=== PATIENT | female | born 1995 | race Caucasian/White ===

== ENCOUNTER 2018-10-08 09:38 | Emergency (ER) | payer MEDICAID ==
[~2018-10-08] VITALS: Ht 157.5 cm; Wt 68.9 kg
[2018-10-08 09:48] VITALS: BP 99/53
[2018-10-08 12:12] LABS: Urine Bacteria MOD /hpf (None Seen); Urine Blood Negative /uL (Negative); Urine Mucus FEW (None Seen); Urine Specific Gravity 1.007 (1.001-1.035); Urine WBC 54 /hpf (0 - 5)
[2018-10-08] MEDS ORDERED: KETOROLAC TROMETH 60MG/2ML VIAL IM ONE (12:15)
== END 2018-10-08 13:05 | disposition home or self-care (01) ==
LOC: ER 09:38
DX: N39.0 Urinary tract infection, site not specified (principal); J45.909 Unspecified asthma, uncomplicated; Z88.2 Allergy status to sulfonamides; Z90.89 Acquired absence of other organs
CPT/HCPCS: 72100; 81001; 81025; 96372; 99284; J1885; 81002

== ENCOUNTER 2019-04-13 15:04 | Emergency (ER) | payer MEDICAID ==
[~2019-04-13] VITALS: Ht 157.5 cm; Wt 65.8 kg
[2019-04-13 16:20] VITALS: BP 111/64
[2019-04-13 16:46] LABS: Eosinophils # (auto) 0.1 uL
[2019-04-13 16:50] LABS: Basophils # (auto) 0 uL; Basophils % (auto) 0.8 % (0.0-2.0); Hematocrit 44.1 % (36.0-46.0); Hemoglobin 14.6 g/dL (12.2-16.2); Lymphocytes # (auto) 1.4 uL; Lymphocytes % (auto) 23.7 % (10.0-50.0); Mean Corpuscular Hemoglobin 29.1 pg (28.0-32.0); Mean Corpuscular Hgb Conc. 33.2 g/dL (32.0-36.0); Mean Corpuscular Volume 87.7 fL (80.0-100.0); Monocytes # (auto) 0.5 uL; Monocytes % (auto) 7.8 % (0.0-12.0); Neutrophils % (auto) 66.7 % (37.0-80.0); Platelet Count (auto) 230 10^3/uL (140-450); Red Blood Cells 5.03 10^6/uL (4.0-5.20); Red Cell Distribution Width 15.5 % (11.8-14.3)
[2019-04-13 17:13] LABS: Alcohol, Urine < 3.0 mg/dL (0-5); Amphetamine Screen, Urine POSITIVE (NEGATIVE); BUN/Creatinine Ratio 8.3; Benzodiazephine Screen, Urine NEGATIVE (NEGATIVE); Calcium 9.1 mg/dL (8.5-10.1); Cannabinoid Screen, Urine NEGATIVE (NEGATIVE); Cocaine Screen, Urine NEGATIVE (NEGATIVE); Opiate Scree,Urine NEGATIVE (NEGATIVE); Phencyclidine Screen, Urine NEGATIVE (NEGATIVE); Potassium 4.9 mmol/L (3.5-5.1)
[2019-04-13 17:20] LABS: Barbiturate Scree,Urine NEGATIVE (NEGATIVE)
[2019-04-13 17:58] LABS: Urine Bacteria MANY /hpf (None Seen); Urine Blood Negative /uL (Negative); Urine Mucus FEW (None Seen); Urine Specific Gravity 1.007 (1.001-1.035); Urine WBC 46 /hpf (0 - 5)
[2019-04-13] MEDS ORDERED: cefTRIAXone SOD 1,000 MG VL IM ONE (18:00)
== END 2019-04-13 18:21 | disposition home or self-care (01) ==
LOC: ER 15:04
DX: N39.0 Urinary tract infection, site not specified (principal); F15.10 Other stimulant abuse, uncomplicated; Z88.2 Allergy status to sulfonamides
CPT/HCPCS: 36415; 80048; 80307; 81001; 81025; 84702; 85025; J0696

== ENCOUNTER 2019-11-30 10:22 | Emergency (ER) | payer MEDICAID ==
[~2019-11-30] VITALS: Ht 157.5 cm; Wt 65.8 kg
[2019-11-30 13:42] VITALS: BP 98/66
== END 2019-11-30 14:22 | disposition home or self-care (01) ==
LOC: ER 10:22
DX: J02.9 Acute pharyngitis, unspecified (principal); J06.9 Acute upper respiratory infection, unspecified; J45.909 Unspecified asthma, uncomplicated; Z88.2 Allergy status to sulfonamides

== ENCOUNTER 2020-01-10 01:57 | Emergency (ER) | payer MEDICAID ==
[~2020-01-10] VITALS: Ht 157.5 cm; Wt 68.0 kg
[2020-01-10 02:48] LABS: Basophils # (auto) 0.1 10 ^3/uL (0-0.2); Basophils % (auto) 0.6 % (0.0-2.0); Eosinophils # (auto) 0.1 10 ^3/uL (0-0.8); Eosinophils % (auto) 1.1 % (0.0-7.0); Hematocrit 39.4 % (36.0-46.0); Hemoglobin 12.9 g/dL (12.2-16.2); Lymphocytes # (auto) 2.6 10 ^3/uL (0.4-5.4); Lymphocytes % (auto) 31.9 % (10.0-50.0); Mean Corpuscular Hemoglobin 29.3 pg (28.0-32.0); Mean Corpuscular Hgb Conc. 32.8 g/dL (32.0-36.0); Mean Corpuscular Volume 89.3 fL (80.0-100.0); Monocytes # (auto) 0.8 10 ^3/uL (0-1.3); Monocytes % (auto) 9.4 % (0.0-12.0); Neutrophils # (auto) 4.6 10 ^3/uL (1.6-8.6); Platelet Count (auto) 267 10^3/uL (140-450); Red Blood Cells 4.41 10^6/uL (4.0-5.20); Red Cell Distribution Width 14.8 % (11.8-14.3); White Blood Cell 8.1 10^3/uL (4.4-10.8)
[2020-01-10 03:06] LABS: Albumin 3.8 g/dL (3.4-5.0); Calcium 9.3 mg/dL (8.5-10.1); Potassium 3.9 mmol/L (3.5-5.1)
[2020-01-10 03:11] LABS: BUN/Creatinine Ratio 12.7; Bilirubin, Total 0.2 mg/dL (0.2-1.0); Total Protein 7.6 g/dL (6.4-8.2)
[2020-01-10] MEDS ORDERED: ONDANSETRON HCL 4 MG/2 ML VIAL IV ONE ×2 (03:30→05:00)
[2020-01-10] MEDS ORDERED: MORPHINE SULFATE 4 MG/ML SYR/VIAL IV ONE ×2 (03:30→05:00)
[2020-01-10] MEDS ORDERED: SODIUM CHLORIDE 0.9% 1,000 ML IV ONE (03:30)
[2020-01-10 05:00] VITALS: BP 111/67
== END 2020-01-10 05:47 | disposition home or self-care (01) ==
LOC: ER 02:00
DX: K80.20 Calculus of gallbladder without cholecystitis without obstruction (principal); K59.00 Constipation, unspecified; Z90.89 Acquired absence of other organs; Z88.2 Allergy status to sulfonamides
CPT/HCPCS: 36415; 74176; 80053; 83690; 85025; 96374; 96375; 96376; 99284; J2270; J2405; J7030

== ENCOUNTER 2021-06-17 10:23 | Emergency (ER) | payer MEDICAID ==
[~2021-06-17] VITALS: Ht 157.5 cm; Wt 72.6 kg
[2021-06-17 12:01] VITALS: BP 118/72
[2021-06-17] MEDS ORDERED: cefTRIAXone SOD 1,000 MG VL IM ONE (12:30)
[2021-06-17] MEDS ORDERED: IBUPROFEN 800 MG TAB PO ONE (12:45)
== END 2021-06-17 12:52 | disposition home or self-care (01) ==
LOC: ER 10:23
DX: L02.01 Cutaneous abscess of face (principal); Z88.2 Allergy status to sulfonamides
CPT/HCPCS: 10060; 87075; 87205; 96372; 99283; J0696

== ENCOUNTER 2021-06-21 12:35 | Emergency (ER) | payer MEDICAID ==
[~2021-06-21] VITALS: Ht 167.6 cm; Wt 72.6 kg
[2021-06-21 13:54] VITALS: BP 118/79
== END 2021-06-21 14:51 | disposition home or self-care (01) ==
LOC: ER 12:36
DX: Z48.02 Encounter for removal of sutures (principal); Z88.2 Allergy status to sulfonamides

== ENCOUNTER 2021-11-10 23:49 | Emergency (ER) | payer MEDICAID ==
[~2021-11-10] VITALS: Ht 157.5 cm; Wt 72.6 kg
[2021-11-10 23:52] VITALS: BP 116/78
== END 2021-11-11 05:17 | disposition left against medical advice (07) ==
LOC: ER 23:49
DX: L02.01 Cutaneous abscess of face (principal); Z53.21 Procedure and treatment not carried out due to patient leaving prior to being seen by health care provider

== ENCOUNTER 2022-02-18 19:50 | Emergency (ER) | payer MEDICAID ==
[~2022-02-18] VITALS: Ht 157.5 cm; Wt 71.2 kg
[2022-02-18] MEDS ORDERED: LIDOCAINE 1% (LOCAL ANESTH.) PF 5ml SDV ID ONE (20:30)
[2022-02-18] MEDS ORDERED: LIDOCAINE 1%HCL (LOCAL ANESTH) 10 ML MDV ONE (20:46)
[2022-02-18] MEDS ORDERED: HYDR-4902 PO (21:08)
[2022-02-18] MEDS ORDERED: CEPH-322 PO (21:08)
[2022-02-18] MEDS ORDERED: LIDOCAINE 1% HCL (LOCAL ANESTH.) INJ 20ML MDV IJ ONE (21:15)
[2022-02-18] MEDS ORDERED: HYDROcodone-ACET 10/325MG TAB PO ONE (21:15)
[2022-02-18 22:13] VITALS: BP 112/67
== END 2022-02-18 22:20 | disposition home or self-care (01) ==
LOC: ER 19:50
DX: L02.411 Cutaneous abscess of right axilla (principal); F12.10 Cannabis abuse, uncomplicated; Z88.2 Allergy status to sulfonamides; Z90.89 Acquired absence of other organs
CPT/HCPCS: 10060; 99283; J2001

== ENCOUNTER 2022-02-19 12:05 | Emergency (ER) | payer MEDICAID ==
[~2022-02-19] VITALS: Ht 157.5 cm; Wt 71.2 kg
[~2022-02-19 12:05] MED LIST: CEPH-322 PO; HYDR-4902 PO
[2022-02-19 12:06] VITALS: BP 134/68
[2022-02-19] MEDS ORDERED: LIDOCAINE 1%HCL (LOCAL ANESTH) 10 ML MDV ONE (12:51)
[2022-02-19] MEDS ORDERED: LIDOCAINE 1% HCL (LOCAL ANESTH.) INJ 20ML MDV IJ ONE (13:00)
[2022-02-19] MEDS ORDERED: cefTRIAXone SOD 1,000 MG VL IM ONE (13:00)
== END 2022-02-19 13:03 | disposition home or self-care (01) ==
LOC: ER 12:05
DX: L02.413 Cutaneous abscess of right upper limb (principal); F12.10 Cannabis abuse, uncomplicated; Z88.2 Allergy status to sulfonamides
CPT/HCPCS: 96372; 99283; J0696; J2001

== ENCOUNTER 2022-02-22 00:22 | Emergency (ER) | payer MEDICAID ==
[~2022-02-22] VITALS: Ht 157.5 cm; Wt 71.2 kg
[2022-02-22 00:34] VITALS: BP 118/73
== END 2022-02-22 02:58 | disposition left against medical advice (07) ==
LOC: ER 00:22
DX: Z48.00 Encounter for change or removal of nonsurgical wound dressing (principal); Z53.21 Procedure and treatment not carried out due to patient leaving prior to being seen by health care provider

== ENCOUNTER 2022-02-23 00:44 | Emergency (ER) | payer MEDICAID ==
[~2022-02-23] VITALS: Ht 157.5 cm; Wt 71.2 kg
[2022-02-23 00:44] VITALS: BP 117/74
== END 2022-02-23 05:33 | disposition left against medical advice (07) ==
LOC: ER 00:44
DX: L02.413 Cutaneous abscess of right upper limb (principal); Z48.00 Encounter for change or removal of nonsurgical wound dressing; Z53.21 Procedure and treatment not carried out due to patient leaving prior to being seen by health care provider

== ENCOUNTER 2022-04-14 21:29 | Emergency (ER) | payer MEDICAID ==
[~2022-04-14] VITALS: Ht 157.5 cm; Wt 68.0 kg
[2022-04-14 21:29] VITALS: BP 112/72
== END 2022-04-15 04:26 | disposition left against medical advice (07) ==
LOC: ER 21:29
DX: L02.411 Cutaneous abscess of right axilla (principal); Z53.21 Procedure and treatment not carried out due to patient leaving prior to being seen by health care provider

== ENCOUNTER 2022-11-03 16:42 | Emergency (ER) | payer MEDICAID ==
[~2022-11-03] VITALS: Ht 157.5 cm; Wt 68.0 kg
[2022-11-03 18:00] VITALS: BP 125/75
== END 2022-11-03 22:05 | disposition home or self-care (01) ==
LOC: EDUNIT# 16:42 → ER 16:42 → EDBD 16:42 → ER 22:05
DX: T40.411A Poisoning by fentanyl or fentanyl analogs, accidental (unintentional), initial encounter (principal); R41.82 Altered mental status, unspecified; F17.210 Nicotine dependence, cigarettes, uncomplicated; F12.10 Cannabis abuse, uncomplicated; F15.10 Other stimulant abuse, uncomplicated; Z88.2 Allergy status to sulfonamides; Y92.9 Unspecified place or not applicable